=== PATIENT | male | born 1970 | race African-American/Black ===

== ENCOUNTER 2024-08-03 12:25 | Emergency (ER) | payer SELFPAY ==
[2024-08-03] MEDS ORDERED: methylPREDNISolone Acetate 80 mg (1 mL) VIAL ONE (13:26)
== END 2024-08-03 13:45 | disposition home or self-care (01) ==
LOC: MADERS 12:25
DX: H66.92 Otitis media, unspecified, left ear (principal); H73.92 Unspecified disorder of tympanic membrane, left ear; J20.9 Acute bronchitis, unspecified; E11.9 Type 2 diabetes mellitus without complications; I10 Essential (primary) hypertension
CPT/HCPCS: 96372; 99283; J1040

== ENCOUNTER 2025-08-10 18:17 | Emergency (ER) | payer OTHER, SELFPAY ==
[2025-08-10] MEDS ORDERED: Oxymetazoline HCl 0.05% (30 ML BOT) ONE (18:24)
[2025-08-10 19:07] LABS: Anisocytosis SLIGHT = 6-15 cells (100X) (0-5/hpf); Hematocrit 39.7 % (42.0-52.0); Hemoglobin 12.6 g/dL (14.0-18.0); MDiff Complete? YES; Macrocytosis SLIGHT = 6-15 cells (100X) (0-5/hpf); Mean Corpuscular Hemoglobin 31.2 pg (27.0-31.0); Mean Corpuscular Volume 98.1 fl (78.0-98.0); Platelet Adequacy Comment Appears Adequate; Platelet Count 287 10x3/uL (130-400); Red Blood Cell (RBC) Count 4.05 mill/uL (4.70-6.10); White Blood Cell (WBC) Count 8.8 10x3/uL (4.8-10.8)
[2025-08-10] MEDS ORDERED: HYDROcodone/Acetaminophen 10/325 mg Tablet ONE (19:24)
[2025-08-10] MEDS ORDERED: Amoxicillin/Potassium Clav 875 MG TAB ONE (19:24)
== END 2025-08-10 19:34 | disposition home or self-care (01) ==
LOC: MADERS 18:17
DX: R04.0 Epistaxis (principal); I10 Essential (primary) hypertension; E11.40 Type 2 diabetes mellitus with diabetic neuropathy, unspecified; Z79.899 Other long term (current) drug therapy; Z79.84 Long term (current) use of oral hypoglycemic drugs
CPT/HCPCS: 30901; 36415; 85025; 96374

== ENCOUNTER 2025-08-14 11:23 | Emergency (ER) | payer SELFPAY | END 2025-08-14 12:38 | disposition home or self-care (01) | LOC: MADERS 11:23 | DX: R04.0 Epistaxis (principal); I10 Essential (primary) hypertension; E11.42 Type 2 diabetes mellitus with diabetic polyneuropathy | CPT/HCPCS: 99283 ==